=== PATIENT | male | born 1970 | race Caucasian/White ===

== ENCOUNTER → 2017-05-05 | Outpatient (CLI) | payer BC ==
[2013-09-18 00:26] VITALS: BP 136/82
[2017-05-05 12:45] LABS: BASOPHILS % (AUTO) 0.2 % (0.2-1.0); EOSINOPHILS # (AUTO) 0.1 x10^3/uL (0.0-0.2); EOSINOPHILS % (AUTO) 1.3 % (0.9-2.9); HEMATOCRIT 41.5 % (42.0-54.0); HEMOGLOBIN 13.7 g/dL (13.5-18.0); LYMPHOCYTES # (AUTO) 2.6 X10^3/uL (1.3-2.9); LYMPHOCYTES % (AUTO) 29.1 % (21.0-51.0); MEAN CORPUSCULAR HEMOGLOBIN 29.2 pg (27.0-34.0); MEAN CORPUSCULAR VOLUME 88.5 fL (80.0-100.0); MEAN PLATELET VOLUME 8.7 fL (7.4-11.0); MONOCYTES # (AUTO) 0.6 x10^3/uL (0.3-0.8); MONOCYTES % (AUTO) 7.1 % (0.0-13.0); NEUTROPHILS # (AUTO) 5.5 x10^3/uL (2.2-4.8); NEUTROPHILS % (AUTO) 62.3 % (42.0-75.0); PLATELET COUNT 241 X10^3/uL (150.0-450.0); RED CELL DISTRIBUTION WIDTH 12.3 % (11.6-16.5); WHITE BLOOD COUNT 8.8 X10^3/uL (3.6-10.0)
[2017-05-05 13:03] LABS: ALANINE AMINOTRANSFERASE 50 Units/L (12-78); ALBUMIN 3.7 g/dL (3.4-5.0); ALKALINE PHOSPHATASE 44 Units/L (46-116); ASPARTATE AMINO TRANSFERASE 26 Units/L (15-37); BLOOD UREA NITROGEN 15 mg/dL (7-18); CALCIUM 8.9 mg/dL (8.5-10.1); CARBON DIOXIDE 31.2 mmol/L (21-32); CHLORIDE 101 mmol/L (98-107); CHOL/HDL RATIO 2.4 (0.0-5.0); CHOLESTEROL 127 mg/dL (0-200); COR NA(FOR HYPERGLY) 139 mmol/L (136-145); CREATININE 1.31 mg/dL (0.70-1.30); HDL CHOLESTEROL 52 mg/dL (40-60); SODIUM 138 mmol/L (136-145); TOTAL PROTEIN 7.3 g/dL (6.4-8.2); TRIGLYCERIDES 76 mg/dL (0-150); eGFR BLACK RACES > 60 (>60); eGFR NON BLACK RACES > 60 (>60)
== END ==
LOC: LAB 12:32
PROVIDERS: ATTEND Specialist
DX: I10 Essential (primary) hypertension (principal); E11.9 Type 2 diabetes mellitus without complications; D64.89 Other specified anemias
CPT/HCPCS: 36415; 80053; 80061; 85025

== ENCOUNTER 2024-05-24 12:01 | Inpatient (IN) ==
[2024-05-24 12:16] VITALS: BMI 37.8
[2024-05-24] MEDS: NS 1,000 ML IV 1,000 ML IV ONE ×3 (12:30→15:48)
[2024-05-24] MEDS: MAGNESIUM SULFATE 1 GRAM/100 mL PREMIX 1 G/100 ML BAG IV ONE (12:34)
[2024-05-24 12:41] LABS: HEMOGLOBIN 15.2 g/dL (13.5-18.0); MEAN CORPUSCULAR VOLUME 89.7 fL (80.0-100.0)
[2024-05-24 12:44] LABS: BASOPHILS # (AUTO) 0.1 X10^3/uL (0.0-0.1); BASOPHILS % (AUTO) 0.7 % (0.2-1.0); EOSINOPHILS % (AUTO) 0.2 % (0.9-2.9); HEMATOCRIT 45.8 % (42.0-54.0); LYMPHOCYTES # (AUTO) 1.4 X10^3/uL (1.3-2.9); LYMPHOCYTES % (AUTO) 8.4 % (21.0-51.0); MEAN CORPUSCULAR HEMOGLOBIN 29.7 pg (27.0-34.0); MEAN CORPUSCULAR HGB CONC 33.1 g/dL (33.0-35.0); MEAN PLATELET VOLUME 8.7 fL (7.4-11.0); MONOCYTES # (AUTO) 0.8 x10^3/uL (0.3-0.8); MONOCYTES % (AUTO) 4.9 % (0.0-13.0); NEUTROPHILS # (AUTO) 14.3 x10^3/uL (2.2-4.8); NEUTROPHILS % (AUTO) 85.8 % (42.0-75.0); PLATELET COUNT 464 X10^3/uL (150.0-450.0); RED BLOOD COUNT 5.11 X10^6/uL (4.7-6.0); RED CELL DISTRIBUTION WIDTH 13.3 % (11.6-16.5); WHITE BLOOD COUNT 16.7 X10^3/uL (3.6-10.0)
[2024-05-24] MEDS: ZOFRAN INJ 4 MG VIAL IVP ONE (12:51)
[2024-05-24 12:56] LABS: ALANINE AMINOTRANSFERASE 238 Units/L (12-78); ALBUMIN 3.3 g/dL (3.4-5.0); ALKALINE PHOSPHATASE 50 Units/L (46-116); ASPARTATE AMINO TRANSFERASE 219 Units/L (15-37); BLOOD UREA NITROGEN 87 mg/dL (7-18); CARBON DIOXIDE 23.2 mmol/L (21-32); COR CA(FOR HYPOALB) 10.6 mg/dL (8.5-10.1); COR NA(FOR HYPERGLY) 131 mmol/L (136-145); CREATININE 4.15 mg/dL (0.70-1.30); GLUCOSE 148 mg/dL (65-99); MAGNESIUM 2.3 mg/dL (2.0-2.9); SODIUM 130 mmol/L (136-145); TOTAL PROTEIN 7.6 g/dL (6.4-8.2); eGFR NON BLACK RACES 16 (>60)
[2024-05-24 12:59] LABS: BAND NEUTROPHILS % 2 % (0-10); PLATELET MORPHOLOGY COMMENT NORMAL (NORMAL)
--- NOTE | 2024-05-24 13:06 | EKG ---
Test Reason : sob Blood Pressure : */* mmHG Vent. Rate : 95 BPM Atrial Rate : 95 BPM P-R Int : 138 ms QRS Dur : 84 ms QT Int : 328 ms P-R-T Axes : 15 -20 71 degrees QTc Int : 412 ms Normal sinus rhythm Normal ECG No previous ECGs available Confirmed by Aryan Harris MD ([id number]) on 05/24/2024 5:40:28 PM Referred By: Confirmed By: Aryan Harris MD
--- NOTE | 2024-05-24 13:34 | RAD ---
EXAM:CHEST, PA/LAT ADULTHISTORY:SOB;COMPARISON:No relevant prior studies were available for comparison at the time of interpretation.TECHNIQUE:CHEST, PA/LAT ADULTFINDINGS:Chest:Lines and tubes: NoneMediastinum: Cardiac and mediastinal shadow is within normal limits for size and contour.Pulmonary vessels: No pulmonary vascular congestion.Lung grey: No suspicious airspace opacity.Pleura: No effusion. No pneumothorax.Bones and soft tissues: No acute osseous or soft tissue abnormality.IMPRESSION:1. No acute cardiopulmonary abnormalityTHIS IS AN ELECTRONICALLY VERIFIED FINAL REPORT05/24/2024 1:30 PM - Electronically signed by Bryan Mcdaniel MD
[2024-05-24 13:39] LABS: CHLORIDE 97 mmol/L (98-107)
[2024-05-24 13:45] LABS: CREATINE KINASE > 20000 Units/L (39-308)
[2024-05-24 14:34] LABS: BILIRUBIN,URINE NEGATIVE (NEGATIVE); BLOOD/HEMOGLOBIN,URINE 5+ (NEGATIVE); GLUCOSE, URINE NEGATIVE (NEGATIVE); KETONES,URINE NEGATIVE (NEGATIVE); LEUKOCYTE ESTERASE ,URINE NEGATIVE (NEGATIVE); NITRITES,URINE NEGATIVE (NEGATIVE); PROTEIN,URINE 2+ (NEGATIVE); UROBILINOGEN,URINE NORMAL (NORMAL)
[2024-05-24 14:49] LABS: APPEARANCE,URINE CLEAR (CLEAR); COLOR,URINE PALE YELLOW (YELLOW); RBC,URINE 0-2 /HPF (0-3)
[2024-05-24 14:50] LABS: SQUAMOUS EPITHELIAL CELL,UR RARE /HPF (NEGATIVE)
[2024-05-24 14:51] LABS: BACTERIA,URINE NEGATIVE /HPF (NEGATIVE)
[2024-05-24 16:24] LABS: ALBUMIN 3.2 g/dL (3.4-5.0); CALCIUM 9.7 mg/dL (8.5-10.1); CARBON DIOXIDE 25.4 mmol/L (21-32); COR CA(FOR HYPOALB) 10.3 mg/dL (8.5-10.1); CREATININE 4.03 mg/dL (0.70-1.30); TOTAL PROTEIN 7.5 g/dL (6.4-8.2)
[2024-05-24 16:28] LABS: POTASSIUM 7.9 mmol/L (3.5-5.1)
--- NOTE | 2024-05-24 17:44 | DR.URIAD ---
HPI Time Seen Time Seen by Provider: 05/24/24 12:11 PCP Primary Care Physician: Christina Gill HPI Comment HPI Comment: Patient recently diagnosed with flu a has been feeling weak and sick. Patient states he has been having nausea and vomiting. Denies fever at this time. Patient has had a hard time keeping fluids down. Complaint Chief Complaint:: Patient diag with Flu A 05/18. Has taken meds as prescribed, hasn't gotten better, seen PCP on Tuesday and got a litter of Fluids same day. Yesterday feeling real nauseated, vomited, stomach bloating, last BM 2 days ago was loose. Patient complains of extreme weakness, and feet tingling bilateral. COVID-19 Coronavirus risk:travel/contact w/high risk person: No Has patient experienced Coronavirus symptoms: No Source History Provided: Patient Mode of Arrival Mode of Arrival: Ambulatory Timing Onset of Chief Complaint: 05/18/24 PMH PMH Past Medical History: Yes Past Medical History: Diabetes and Hypertension Past Surgical History: No Surgical History: No History Family History History of Family Medical Conditions: Yes Family Medical History: ME and Hypertension Social History Does patient currently use any type of tobacco product: No Have you used tobacco products in the last 12 months: No Type of Tobacco Use: None Does any household member use tobacco: No Alcohol Use: None Do you use any recreational Drugs:: No Lives Where: Home Travel Risk Coronavirus risk:travel/contact w/high risk person: No Has patient experienced Coronavirus symptoms: No Infectious screening In the last 2 months have you had wt loss of >10#?: NO Have you had fever, night sweats or hemotysis?: No Have you traveled outside the country in the last 6 months?: No Isolation: Standard ROS Review of Systems Constitutional: See HPI, Weakness and Fatigue Eyes: No Symptoms Reported ENTM: See HPI, Nose Discharge and Nose Congestion Respiratoy: See HPI; negative Short of Breath or Wheezing Cardiovascular: No Symptoms Reported Gastrointestinal/Abdominal: See HPI, Diarrhea, Nausea and Vomiting; negative Abdominal Pain or Constipation Genitourinary: No Symptoms Reported Neurological: No Symptoms Reported Musculoskeletal: No Symptoms Reported Integumentary: No Symptoms Reported Hematologic/Lymphatic: No Symptoms Reported Endocrine: No Symptoms Reported Psychiatric: No Symptoms Reported All Other Systems: Reviewed and Negative PE Vital Signs Vitals: Vital Signs Temperature 98.4 F Temperature 98.1 F Pulse Rate 114 Pulse Rate 119 Pulse Rate 121 Pulse Rate 120 Pulse Rate 115 Pulse Rate 95 Pulse Rate 100 Pulse Rate 96 Pulse Rate 98 Pulse Rate 98 Pulse Rate 96 Pulse Rate 95 Pulse Rate 101 Pulse Rate 98 Pulse Rate 113 Pulse Rate 118 Respiratory Rate 21 Respiratory Rate 22 Respiratory Rate 26 Respiratory Rate 25 Respiratory Rate 19 Respiratory Rate 23 Respiratory Rate 24 Respiratory Rate 24 Respiratory Rate 17 Respiratory Rate 19 Respiratory Rate 26 Respiratory Rate 31 Respiratory Rate 21 Respiratory Rate 18 Respiratory Rate 16 Blood Pressure 142/83 Blood Pressure 144/77 Blood Pressure 156/83 Blood Pressure 156/83 Blood Pressure 156/87 Blood Pressure 160/74 Blood Pressure 176/98 Blood Pressure 135/81 O2 Sat by Pulse Oximetry 100 O2 Sat by Pulse Oximetry 96 O2 Sat by Pulse Oximetry 99 O2 Sat by Pulse Oximetry 99 O2 Sat by Pulse Oximetry 97 O2 Sat by Pulse Oximetry 98 O2 Sat by Pulse Oximetry 98 O2 Sat by Pulse Oximetry 98 O2 Sat by Pulse Oximetry 96 O2 Sat by Pulse Oximetry 96 General Limitations: No Limitations General Appearance: Alert and In No Apparent Distress Head Head Exam: Normal Inspection Eyes Eye exam: Normal Appearance ENT ENT Exam: Normal Exam External Ear Exam: Normal External Inspection TM/Canal Exam: Bilateral: Normal Nose Exam: Normal Nose Exam Nasal Speculum Exam: Bilateral: Normal Mouth Exam: Normal Inspection Throat Exam: Normal Inspection Neck Neck Exam: Normal Inspection Chest Chest Inspection: Normal Inspection Respiratory Respiratory Exam: Normal Lung Sounds Bilat Respiratory Exam: Bilateral: Clear to Auscultation Cardiovascular Cardiovascular Exam: Regular Rate and Normal Rhythm Abdominal Exam Abdominal Exam: Normal Inspection, Normal Bowel Sounds and Soft Extremeties Extremities Exam: Normal Inspection Back Back Exam: Normal Inspection Neurologic Neurological Exam: Alert and Oriented X3 Psychiatric Psychiatric Exam: Normal Affect and Normal Mood Skin Skin Exam: Warm, Dry, Intact and Normal Color COURSE Consultation Called: 17:53 Consultation Comments: Discussed case with Dr. Grant. He is agreeable to admission. [facility] Labs Reviewed 05/24/24 12:23 05/24/24 15:56 Laboratory: WBC 16.7 X10^3/uL (3.6-10.0) H 05/24/24 12:23 RBC 5.11 X10^6/uL (4.7-6.0) 05/24/24 12:23 Hgb 15.2 g/dL (13.5-18.0) 05/24/24 12:23 Hct 45.8 % (42.0-54.0) 05/24/24 12:23 MCV 89.7 fL (80.0-100.0) 05/24/24 12:23 MCH 29.7 pg (27.0-34.0) 05/24/24 12:23 MCHC 33.1 g/dL (33.0-35.0) 05/24/24 12:23 RDW 13.3 % (11.6-16.5) 05/24/24 12:23 Plt Count 464 X10^3/uL (150.0-450.0) H 05/24/24 12:23 Plt Count Comment Increased (ADEQUATE) 05/24/24 12:23 MPV 8.7 fL (7.4-11.0) 05/24/24 12:23 Neut % (Auto) 85.8 % (42.0-75.0) H 05/24/24 12:23 Lymph % (Auto) 8.4 % (21.0-51.0) L 05/24/24 12:23 [place] % (Auto) 4.9 % (0.0-13.0) 05/24/24 12:23 Eos % (Auto) 0.2 % (0.9-2.9) L 05/24/24 12:23 Baso % (Auto) 0.7 % (0.2-1.0) 05/24/24 12:23 Neut # (Auto) 14.3 x10^3/uL (2.2-4.8) H 05/24/24 12:23 Lymph # (Auto) 1.4 X10^3/uL (1.3-2.9) 05/24/24 12:23 [place] # (Auto) 0.8 x10^3/uL (0.3-0.8) 05/24/24 12:23 Eos # (Auto) 0.0 x10^3/uL (0.0-0.2) 05/24/24 12:23 Baso # (Auto) 0.1 X10^3/uL (0.0-0.1) 05/24/24 12:23 Absolute Nucleated RBC 0.1 /100WBC 05/24/24 12:23 Total Counted 100 05/24/24 12:23 Neutrophils % (Manual) 83 % (39-76) H 05/24/24 12:23 Band Neutrophils % 2 % (0-10) 05/24/24 12:23 Lymphocytes % (Manual) 12 % (13-43) L 05/24/24 12:23 Monocytes % (Manual) 3 % (4-9) L 05/24/24 12:23 Plt Morphology Comment Normal (NORMAL) 05/24/24 12:23 RBC Morphology Normal (NORMAL) 05/24/24 12:23 D-Dimer 1.30 ug/ml (0.0-0.57) H 05/24/24 12:23 Sodium 131 mmol/L (136-145) L 05/24/24 15:56 Corrected Sodium 132 mmol/L (136-145) L 05/24/24 15:56 Potassium 7.9 mmol/L (3.5-5.1) H* 05/24/24 15:56 Chloride 99 mmol/L (98-107) 05/24/24 15:56 Carbon Dioxide 25.4 mmol/L (21-32) 05/24/24 15:56 BUN 87 mg/dL (7-18) H 05/24/24 15:56 Creatinine 4.03 mg/dL (0.70-1.30) H 05/24/24 15:56 Est GFR (MDRD) Af Amer 20 (>60) L 05/24/24 15:56 Est GFR (MDRD) Non-Af 16 (>60) L 05/24/24 15:56 Glucose 123 mg/dL (65-99) H 05/24/24 15:56 Calcium 9.7 mg/dL (8.5-10.1) 05/24/24 15:56 Corrected Calcium 10.3 mg/dL (8.5-10.1) H 05/24/24 15:56 Magnesium 2.3 mg/dL (2.0-2.9) 05/24/24 13:20 Total Bilirubin 1.00 mg/dL (0.2-1.0) 05/24/24 15:56 AST 202 Units/L (15-37) H 05/24/24 15:56 ALT 223 Units/L (12-78) H 05/24/24 15:56 Alkaline Phosphatase 52 Units/L (46-116) 05/24/24 15:56 Creatine Kinase > 68134 Units/L (39-308) H 05/24/24 13:20 Troponin I High Sens 29.0 ng/L (4.0-60.0) 05/24/24 13:20 B-Natriuretic Peptide 9.2 pg/mL (0-79) 05/24/24 13:20 Total Protein 7.5 g/dL (6.4-8.2) 05/24/24 15:56 Albumin 3.2 g/dL (3.4-5.0) L 05/24/24 15:56 Globulin 4.3 g/dL (2.5-4.5) 05/24/24 15:56 Albumin/Globulin Ratio 0.7 Ratio (1.1-2.1) L 05/24/24 15:56 Specimen Type Clean catch urine 05/24/24 14:17 Urine Color Pale yellow (YELLOW) 05/24/24 14:17 Urine Appearance Clear (CLEAR) 05/24/24 14:17 Urine pH 6.0 (5.0 - 8.0) 05/24/24 14:17 Ur Specific [place] 1.015 (1.000-1.030) 05/24/24 14:17 Urine Protein 2+ (NEGATIVE) 05/24/24 14:17 Urine Glucose (UA) Negative (NEGATIVE) 05/24/24 14:17 Urine Ketones Negative (NEGATIVE) 05/24/24 14:17 Urine Blood 5+ (NEGATIVE) 05/24/24 14:17 Urine Nitrite Negative (NEGATIVE) 05/24/24 14:17 Urine Bilirubin Negative (NEGATIVE) 05/24/24 14:17 Urine Urobilinogen Normal (NORMAL) 05/24/24 14:17 Ur Leukocyte Esterase Negative (NEGATIVE) 05/24/24 14:17 Urine RBC 0-2 /HPF (0-3) 05/24/24 14:17 Urine WBC 0-2 /HPF (0-5) 05/24/24 14:17 Ur Squamous Epith Cells Rare /HPF (NEGATIVE) 05/24/24 14:17 Urine Bacteria Negative /HPF (NEGATIVE) 05/24/24 14:17 Ur Culture Indicated? No/not indicated 05/24/24 14:17 Opioid Opioid Risk Tool Age ([place] box if 16-45): No History of Preadolescent Sexual Abuse: No Total: 0 Total Score Risk Category: Low Risk Copyright: Jah WILSON predicting aberrant behaviors Discharge Plan Diagnosis Discharge Problem: Influenza A, Dehydration, Acute renal failure due to rhabdomyolysis, Acute hyperkalemia Discharge Plan Patient Disposition: ADMITTED INPATIENT Condition: Stable Prescriptions: No Action hydralazine 10 mg tablet 10 mg PO TID glipizide 5 mg tablet extended release 24hr 5 mg PO QDAY spironolactone 25 mg tablet 25 mg PO BID clonidine HCl 0.2 mg tablet 0.2 mg PO TID metformin 1,000 mg tablet 1,000 mg PO BID lisinopril 40 mg tablet 40 mg PO BID metoprolol tartrate 25 mg tablet 25 mg PO BID azithromycin 250 mg tablet 250 mg PO DAILY Patient Comments: TAKE 2 TABLET BY MOUTH TODAY AN 1 TABLET BY MOUTH ON DAYS 2-5 levofloxacin 500 mg tablet 500 mg PO QDAY Health Concerns: Post Hospitalization: new medications and changes needed to prevent readmission or further decline. Pt educated and given instructions on all concerns. Plan of Treatment: Continue with present treatment and follow up plan. Pt is to keep follow up appointment as instructed and take medications as ordered. Orders to Discharge Patient Discharge Orders: Transfer (Routine); Ordered 05/24/24 Ordered By: Isaac Benitez Follow ups/Referrals Follow ups/Referrals: Andre Acuna [Primary Care Provider] - 3 days Instructions Stand Alone Forms: Find Help Web Site, Post Hospital Follow Up Care
[2024-05-24] MEDS: KAYEXALATE SUSP PO ONE (18:14)
[2024-05-24] MEDS: NS 1,000 ML IV 1,000 ML IV SCH (18:43)
[2024-05-24] MEDS: SNACK - Diabetic Appropriate PO SCH (20:30)
[2024-05-25 05:43] LABS: BASOPHILS # (AUTO) 0.1 X10^3/uL (0.0-0.1); BASOPHILS % (AUTO) 0.6 % (0.2-1.0); EOSINOPHILS # (AUTO) 0.1 x10^3/uL (0.0-0.2); EOSINOPHILS % (AUTO) 1.1 % (0.9-2.9); HEMATOCRIT 43.4 % (42.0-54.0); HEMOGLOBIN 14.4 g/dL (13.5-18.0); LYMPHOCYTES # (AUTO) 1.7 X10^3/uL (1.3-2.9); LYMPHOCYTES % (AUTO) 12.6 % (21.0-51.0); MEAN CORPUSCULAR HEMOGLOBIN 29.8 pg (27.0-34.0); MEAN CORPUSCULAR HGB CONC 33.2 g/dL (33.0-35.0); MEAN CORPUSCULAR VOLUME 89.8 fL (80.0-100.0); MONOCYTES # (AUTO) 1.2 x10^3/uL (0.3-0.8); NEUTROPHILS # (AUTO) 10.1 x10^3/uL (2.2-4.8); NEUTROPHILS % (AUTO) 76.7 % (42.0-75.0); PLATELET COUNT 410 X10^3/uL (150.0-450.0); RED BLOOD COUNT 4.84 X10^6/uL (4.7-6.0); RED CELL DISTRIBUTION WIDTH 12.8 % (11.6-16.5); WHITE BLOOD COUNT 13.2 X10^3/uL (3.6-10.0)
[2024-05-25 06:47] LABS: CALCIUM 9.3 mg/dL (8.5-10.1); CARBON DIOXIDE 22.1 mmol/L (21-32); COR CA(FOR HYPOALB) 10.1 mg/dL (8.5-10.1); CREATININE 3.65 mg/dL (0.70-1.30); TOTAL PROTEIN 6.9 g/dL (6.4-8.2)
[2024-05-25 06:48] LABS: POTASSIUM 6.8 mmol/L (3.5-5.1)
[2024-05-25] MEDS: ZOFRAN INJ 4 MG VIAL ONE (13:35)
[2024-05-25] MEDS: NS 1,000 ML IV 1,000 ML ONE ×2 (13:35→13:37)
[2024-05-25] MEDS: CONSULT PHARMACY - POTASSIUM & MAGNESIUM XX SCH (13:36)
[2024-05-25] MEDS: OMNIPAQUE 350 mg/mL 100 mL BTL 100 ML ONE (13:37)
[2024-05-25] MEDS: NovoLIN R (or HumuLIN R) SUBCUT PRN (21:29)
[2024-05-26 05:55] LABS: BASOPHILS # (AUTO) 0.1 X10^3/uL (0.0-0.1); BASOPHILS % (AUTO) 0.5 % (0.2-1.0); EOSINOPHILS # (AUTO) 0.1 x10^3/uL (0.0-0.2); EOSINOPHILS % (AUTO) 1.2 % (0.9-2.9); HEMATOCRIT 40.2 % (42.0-54.0); HEMOGLOBIN 13.2 g/dL (13.5-18.0); LYMPHOCYTES # (AUTO) 1.3 X10^3/uL (1.3-2.9); LYMPHOCYTES % (AUTO) 11.3 % (21.0-51.0); MEAN CORPUSCULAR HEMOGLOBIN 29.4 pg (27.0-34.0); MEAN CORPUSCULAR HGB CONC 32.8 g/dL (33.0-35.0); MEAN CORPUSCULAR VOLUME 89.7 fL (80.0-100.0); MEAN PLATELET VOLUME 8.9 fL (7.4-11.0); MONOCYTES # (AUTO) 0.9 x10^3/uL (0.3-0.8); MONOCYTES % (AUTO) 8.4 % (0.0-13.0); NEUTROPHILS # (AUTO) 8.8 x10^3/uL (2.2-4.8); NEUTROPHILS % (AUTO) 78.6 % (42.0-75.0); PLATELET COUNT 335 X10^3/uL (150.0-450.0); RED BLOOD COUNT 4.48 X10^6/uL (4.7-6.0); WHITE BLOOD COUNT 11.1 X10^3/uL (3.6-10.0)
[2024-05-26 06:08] LABS: ALBUMIN 2.8 g/dL (3.4-5.0); CALCIUM 9.3 mg/dL (8.5-10.1); CARBON DIOXIDE 23.3 mmol/L (21-32); COR CA(FOR HYPOALB) 10.3 mg/dL (8.5-10.1); CREATININE 3.35 mg/dL (0.70-1.30); TOTAL PROTEIN 6.4 g/dL (6.4-8.2)
[2024-05-26 06:09] LABS: POTASSIUM 5.8 mmol/L (3.5-5.1)
[2024-05-27] MEDS: CATAPRES TAB 0.1 MG PO ONE (04:59)
[2024-05-27 05:15] LABS: BASOPHILS % (AUTO) 0.3 % (0.2-1.0); EOSINOPHILS # (AUTO) 0.2 x10^3/uL (0.0-0.2); EOSINOPHILS % (AUTO) 1.7 % (0.9-2.9); HEMATOCRIT 39.4 % (42.0-54.0); LYMPHOCYTES # (AUTO) 1.4 X10^3/uL (1.3-2.9); LYMPHOCYTES % (AUTO) 11.5 % (21.0-51.0); MEAN CORPUSCULAR HEMOGLOBIN 29.8 pg (27.0-34.0); MEAN CORPUSCULAR HGB CONC 33.1 g/dL (33.0-35.0); MEAN CORPUSCULAR VOLUME 90.3 fL (80.0-100.0); MEAN PLATELET VOLUME 8.7 fL (7.4-11.0); MONOCYTES # (AUTO) 0.9 x10^3/uL (0.3-0.8); MONOCYTES % (AUTO) 7.2 % (0.0-13.0); NEUTROPHILS % (AUTO) 79.3 % (42.0-75.0); PLATELET COUNT 326 X10^3/uL (150.0-450.0); RED BLOOD COUNT 4.36 X10^6/uL (4.7-6.0); RED CELL DISTRIBUTION WIDTH 13.1 % (11.6-16.5); WHITE BLOOD COUNT 12.5 X10^3/uL (3.6-10.0)
[2024-05-27 05:27] LABS: ALBUMIN 2.8 g/dL (3.4-5.0); CALCIUM 9.1 mg/dL (8.5-10.1); CARBON DIOXIDE 26.2 mmol/L (21-32); COR CA(FOR HYPOALB) 10.1 mg/dL (8.5-10.1); CREATININE 3.2 mg/dL (0.70-1.30); TOTAL PROTEIN 6.5 g/dL (6.4-8.2)
[2024-05-27 05:53] LABS: POTASSIUM 5.6 mmol/L (3.5-5.1)
[2024-05-27] MEDS: ZESTRIL TAB 40 MG PO SCH (10:24)
[2024-05-27] MEDS: ACTOS PO SCH (10:24)
[2024-05-27] MEDS: FARXIGA PO SCH (10:24)
[2024-05-27] MEDS: ASPIRIN EC 81 MG PO SCH (10:24)
[2024-05-27] MEDS: LOPRESSOR TAB 25 MG PO SCH (10:24)
[2024-05-28 05:10] LABS: BASOPHILS % (AUTO) 0.2 % (0.2-1.0); EOSINOPHILS # (AUTO) 0.2 x10^3/uL (0.0-0.2); EOSINOPHILS % (AUTO) 1.6 % (0.9-2.9); HEMATOCRIT 36.8 % (42.0-54.0); LYMPHOCYTES # (AUTO) 1.7 X10^3/uL (1.3-2.9); MEAN CORPUSCULAR HEMOGLOBIN 29.2 pg (27.0-34.0); MEAN CORPUSCULAR HGB CONC 32.6 g/dL (33.0-35.0); MEAN CORPUSCULAR VOLUME 89.7 fL (80.0-100.0); MEAN PLATELET VOLUME 8.7 fL (7.4-11.0); MONOCYTES # (AUTO) 0.8 x10^3/uL (0.3-0.8); MONOCYTES % (AUTO) 6.6 % (0.0-13.0); NEUTROPHILS # (AUTO) 9.3 x10^3/uL (2.2-4.8); NEUTROPHILS % (AUTO) 77.6 % (42.0-75.0); PLATELET COUNT 314 X10^3/uL (150.0-450.0); RED CELL DISTRIBUTION WIDTH 12.8 % (11.6-16.5); WHITE BLOOD COUNT 11.9 X10^3/uL (3.6-10.0)
[2024-05-28 05:28] LABS: ALBUMIN 2.6 g/dL (3.4-5.0); CALCIUM 8.7 mg/dL (8.5-10.1); CARBON DIOXIDE 23.9 mmol/L (21-32); COR CA(FOR HYPOALB) 9.8 mg/dL (8.5-10.1); CREATININE 3.02 mg/dL (0.70-1.30); POTASSIUM 4.7 mmol/L (3.5-5.1)
[2024-05-28] MEDS: NS 1,000 ML IV 1,000 ML IV ONE (09:39)
[2024-05-28 15:16] LABS: BILIRUBIN,URINE NEGATIVE (NEGATIVE); BLOOD/HEMOGLOBIN,URINE 4+ (NEGATIVE); GLUCOSE, URINE 4+ (NEGATIVE); KETONES,URINE NEGATIVE (NEGATIVE); LEUKOCYTE ESTERASE ,URINE NEGATIVE (NEGATIVE); NITRITES,URINE NEGATIVE (NEGATIVE); PROTEIN,URINE NEGATIVE (NEGATIVE); UROBILINOGEN,URINE NORMAL (NORMAL)
[2024-05-28 15:24] LABS: APPEARANCE,URINE CLEAR (CLEAR); COLOR,URINE STRAW (YELLOW)
[2024-05-28 15:25] LABS: BACTERIA,URINE NEGATIVE /HPF (NEGATIVE); RBC,URINE 0-2 /HPF (0-3); SQUAMOUS EPITHELIAL CELL,UR RARE /HPF (NEGATIVE)
[2024-05-29 04:58] LABS: BASOPHILS % (AUTO) 0.1 % (0.2-1.0); EOSINOPHILS # (AUTO) 0.1 x10^3/uL (0.0-0.2); EOSINOPHILS % (AUTO) 1.2 % (0.9-2.9); HEMATOCRIT 36.4 % (42.0-54.0); HEMOGLOBIN 11.8 g/dL (13.5-18.0); LYMPHOCYTES # (AUTO) 1.7 X10^3/uL (1.3-2.9); LYMPHOCYTES % (AUTO) 13.5 % (21.0-51.0); MEAN CORPUSCULAR HGB CONC 32.3 g/dL (33.0-35.0); MEAN CORPUSCULAR VOLUME 89.6 fL (80.0-100.0); MEAN PLATELET VOLUME 8.5 fL (7.4-11.0); MONOCYTES # (AUTO) 0.8 x10^3/uL (0.3-0.8); MONOCYTES % (AUTO) 6.6 % (0.0-13.0); NEUTROPHILS # (AUTO) 9.7 x10^3/uL (2.2-4.8); NEUTROPHILS % (AUTO) 78.6 % (42.0-75.0); PLATELET COUNT 316 X10^3/uL (150.0-450.0); RED BLOOD COUNT 4.07 X10^6/uL (4.7-6.0); WHITE BLOOD COUNT 12.4 X10^3/uL (3.6-10.0)
[2024-05-29 05:11] LABS: ALBUMIN 2.7 g/dL (3.4-5.0); CALCIUM 8.5 mg/dL (8.5-10.1); CARBON DIOXIDE 25.3 mmol/L (21-32); COR CA(FOR HYPOALB) 9.5 mg/dL (8.5-10.1); CREATININE 2.95 mg/dL (0.70-1.30); POTASSIUM 4.4 mmol/L (3.5-5.1); TOTAL PROTEIN 6.2 g/dL (6.4-8.2)
[2024-05-29] MEDS: NS 1,000 ML IV 1,000 ML IV ONE (11:10)
[2024-05-30 06:27] LABS: BASOPHILS # (AUTO) 0.1 X10^3/uL (0.0-0.1); EOSINOPHILS # (AUTO) 0.1 x10^3/uL (0.0-0.2); EOSINOPHILS % (AUTO) 1.3 % (0.9-2.9); HEMATOCRIT 34.5 % (42.0-54.0); HEMOGLOBIN 11.4 g/dL (13.5-18.0); LYMPHOCYTES # (AUTO) 1.5 X10^3/uL (1.3-2.9); LYMPHOCYTES % (AUTO) 13.1 % (21.0-51.0); MEAN CORPUSCULAR HEMOGLOBIN 29.5 pg (27.0-34.0); MEAN CORPUSCULAR VOLUME 89.3 fL (80.0-100.0); MEAN PLATELET VOLUME 8.4 fL (7.4-11.0); MONOCYTES # (AUTO) 0.8 x10^3/uL (0.3-0.8); MONOCYTES % (AUTO) 7.3 % (0.0-13.0); NEUTROPHILS % (AUTO) 77.3 % (42.0-75.0); PLATELET COUNT 286 X10^3/uL (150.0-450.0); RED BLOOD COUNT 3.86 X10^6/uL (4.7-6.0); RED CELL DISTRIBUTION WIDTH 12.7 % (11.6-16.5); WHITE BLOOD COUNT 11.6 X10^3/uL (3.6-10.0)
[2024-05-30 06:46] LABS: ALBUMIN 2.7 g/dL (3.4-5.0); CALCIUM 8.4 mg/dL (8.5-10.1); CARBON DIOXIDE 23.8 mmol/L (21-32); COR CA(FOR HYPOALB) 9.4 mg/dL (8.5-10.1); CREATININE 2.63 mg/dL (0.70-1.30); MAGNESIUM 1.4 mg/dL (2.0-2.9); POTASSIUM 4.5 mmol/L (3.5-5.1); TOTAL PROTEIN 6.1 g/dL (6.4-8.2)
[2024-05-30 08:11] VITALS: BP 149/92; PULSE 84; RESP 22; TEMP 98.2; O2SAT 98
== END 2024-05-30 10:48 | disposition home or self-care (01) | DRG 683 ==
LOC: ER 12:01 → ICU 17:59 → MED/SURG 05-29 19:25
PROVIDERS: ADMIT Obstetrics & Gynecology Obstetrics; ATTEND Obstetrics & Gynecology Obstetrics
DX: E87.5 Hyperkalemia; N17.8 Other acute kidney failure; Z87.09 Personal history of other diseases of the respiratory system; E11.65 Type 2 diabetes mellitus with hyperglycemia; I10 Essential (primary) hypertension; E87.1 Hypo-osmolality and hyponatremia; R53.1 Weakness; R06.02 Shortness of breath; R79.1 Abnormal coagulation profile; M62.82 Rhabdomyolysis; R74.01 Elevation of levels of liver transaminase levels; E86.0 Dehydration